=== PATIENT | male | born 1940 | race Hispanic/Latino ===

== ENCOUNTER 2017-10-19 19:27 | Emergency (ER) | payer MEDICARE ==
[~2017-10-19] VITALS: Ht 172.7 cm; Wt 90.7 kg
[2017-10-19] MEDS ORDERED: AMLODIPINE BESYL5 MG PO (20:08)
[2017-10-19] MEDS ORDERED: LOSARTAN POTASS25 MG PO (20:08)
[2017-10-19] MEDS ORDERED: TYLENOL WITH C1 EACH PO (20:08)
[2017-10-19] MEDS ORDERED: HYDROMORPHONE 1MG/1ML INJ IV STA (20:53)
[2017-10-19] MEDS ORDERED: ONDANSETRON HCL INJ 2 MG/ML VIAL IV STA (20:53)
[2017-10-19 21:12] LABS: BASOPHILS % 0.5 % (0.0-1.0); EOSINOPHILS # (AUTO) 0.2 (0.0-0.4); HEMATOCRIT 41.7 % (38.2-49.6); HEMOGLOBIN 15.1 g/dL (14.0-18.0); LYMPHOCYTES % 32.3 % (18.0-39.1); MEAN CORPUSCULAR HEMOGLOBIN 32.4 pg (28-32); MEAN CORPUSCULAR HGB CONC 36.2 g/dL (31-35); MEAN CORPUSCULAR VOLUME 89.5 fL (81-99); MONOCYTES # (AUTO) 0.6 (0.2-0.8); MONOCYTES % 9.3 % (4.4-11.3); NEUTROPHILS # (AUTO) 3.2 (2.1-6.9); NEUTROPHILS % 53.6 % (38.7-80.0); PLATELET COUNT 121 x10e3/uL (140-360); RED BLOOD COUNT 4.66 x10e6/uL (4.3-5.7); RED CELL DISTRIBUTION WIDTH 13.5 % (11.7-14.4)
[2017-10-19 21:20] LABS: BILIRUBIN,URINE NEGATIVE (NEGATIVE); CLARITY,URINE CLEAR (CLEAR); COLOR,URINE YELLOW (YELLOW); KETONES,URINE NEGATIVE (NEGATIVE); LEUKOCYTE ESTERASE ,URINE NEGATIVE (NEGATIVE); NITRITE,URINE NEGATIVE (NEGATIVE); PROTEIN,URINE DIPSTICK NEGATIVE (NEGATIVE); URINE UROBILINOGEN 0.2 mg/dL (0.2 - 1)
[2017-10-19 21:26] LABS: ALANINE AMINOTRANSFERASE 25 IU/L (0-55); ALBUMIN/GLOBULIN RATIO 1.7 (0.8-2.0); ALKALINE PHOSPHATASE 101 IU/L (40-150); ANION GAP 11.8 mmol/L (8-16); BLOOD UREA NITROGEN 23 mg/dL (7-26); BUN/CREATININE RATIO 24 (6-25); CALCIUM 9.1 mg/dL (8.4-10.2); CARBON DIOXIDE 25 mmol/L (22-29); CHLORIDE 104 mmol/L (98-107); CREATININE, SERUM 0.97 mg/dL (0.72-1.25); EPITHELIAL CELLS,URINE RARE /LPF; EST GLOMERULAR FILTRATION RATE > 60 ML/MIN (60-); GLUCOSE 159 mg/dL (74-118); POTASSIUM 3.8 mmol/L (3.5-5.1); RBC,URINE 0-5 /HPF (0-5); SODIUM 137 mmol/L (136-145); WBC,URINE (MAN) 0-5 /HPF (0-5)
[2017-10-19 21:27] LABS: CALCIUM OXALATE CRYSTALS,UR FEW (FEW)
--- NOTE | 2017-10-19 22:45 | Diagnostic Imaging Report ---
EXAM: CT Abdomen and Pelvis WITHOUT contrast INDICATION: Renal stone. COMPARISON: None. TECHNIQUE: Abdomen and pelvis were scanned utilizing a multidetector helical scanner from the lung base to the pubic symphysis without administration of IV contrast. Absence of intravenous contrast decreases sensitivity for detection of focal lesions and vascular pathology. Coronal and sagittal reformations were obtained. Stone protocol is performed. IV CONTRAST: None. ORAL CONTRAST: Water RADIATION DOSE: Total DLP: 660.37 mGy*cm Estimated effective dose: (DLP x 0.015 x size factor) mSv COMPLICATIONS: None FINDINGS: LINES and TUBES: None. LOWER THORAX: Unremarkable HEPATOBILIARY: The liver is diffuse hypodense compared to the spleen, consistent with diffuse hepatic diffuse hepatic steatosis. There are multiple scattered too small to characterize hypodensities in the liver, likely benign. No biliary ductal dilation. GALLBLADDER: No radio-opaque stones or sludge. No wall thickening. SPLEEN: No splenomegaly. PANCREAS: No focal masses or ductal dilatation. ADRENALS: No adrenal nodules KIDNEYS/URETERS: No hydronephrosis. No cystic or solid mass lesions. No stones. GI TRACT: No abnormal distention, wall thickening, or evidence of bowel obstruction. There are diverticula within the colon without evidence of diverticulitis. Appendix is normal. PELVIC ORGANS/BLADDER: Unremarkable. LYMPH NODES: No lymphadenopathy. VESSELS: There is mild atherosclerotic disease in the aorta and major arterial branches. PERITONEUM / RETROPERITONEUM: No free air or fluid. BONES: There are degenerative changes in the lumbar spine and bilateral SI joints. SOFT TISSUES: Small fat-containing left inguinal direct hernia. IMPRESSION: 1. No evidence of nephrolithiasis or hydronephrosis. 2. Multiple hepatic hypodensities compatible with numerous cysts. 3. Hepatic steatosis. Signed by: Dr. Barron Cheatham M.D. on 10/19/2017 10:04 PM
== END 2017-10-20 00:36 | disposition home or self-care (01) ==
LOC: ER 19:27
DX: M54.5 Low back pain (principal); S39.012A Strain of muscle, fascia and tendon of lower back, initial encounter; M46.1 Sacroiliitis, not elsewhere classified; I10 Essential (primary) hypertension; Z87.442 Personal history of urinary calculi
CPT/HCPCS: 36415; 74176; 80053; 81001; 85025; 99284; J1170; J2405

== ENCOUNTER 2018-06-22 11:52 | Emergency (ER) | payer MEDICARE ==
[~2018-06-22] VITALS: Ht 172.7 cm; Wt 90.7 kg
[~2018-06-22 11:52] MED LIST: AMLODIPINE BESYL5 MG PO; LOSARTAN POTASS25 MG PO; TYLENOL WITH C1 EACH PO
--- OUTSIDE RECORDS SUMMARY | 2018-06-22 11:54 | XMS REPORT ---
Author Author [facility] Address Unknown Phone Unavailable Care Team Providers Care Mercerizer Name Role Phone Clemente SCHMIDT Unavailable Unavailable Problems This patient has no known problems. Allergies, Adverse Reactions, Alerts This patient has no known allergies or adverse reactions. Medications This patient has no known medications. Results Test Description Test Time Test Comments Text Results Atomic Results Result Comments CT ABDOMEN/PELVIS WO 2017-10-19 21:59:00 [place] [address] Patient Name: AMADA STEIN MR #: [id number] : 1940 Age/Sex: 77/M Req #: [id number] [facility] Physician: Ordered by: JENY SCHMIDT MD Report #: [id number] Location: ER Room/Bed: Procedure: [id number] CT/CT ABDOMEN/PELVIS WO Exam Date: 10/19/17 Exam Time: 2113 REPORT STATUS: Signed EXAM: CT Abdomen and Pelvis WITHOUT contrast INDICATION: Renal stone. COMPARISON: None. TECHNIQUE: Abdomen and pelvis were scanned utilizing a multidetector helical scanner from the lung base to the pubic symphysis without administration of IV contrast. Absence of intravenous contrast decreases sensitivity for detection of focal lesions and vascular pathology. Coronal and sagittal reformations were obtained. Stone protocol is performed. IV CONTRAST: None. ORAL CONTRAST: Water RADIATION DOSE: Total DLP: 660.37 mGy*cm Estimated effective dose: (DLP x 0.015 x size factor) mSv COMPLICATIONS: None FINDINGS: LINES and TUBES: None. LOWER THORAX: Unremarkable HEPATOBILIARY: The liver is diffuse hypodense compared to the spleen, co nsistent with diffuse hepatic diffuse hepatic steatosis. There are multiple scattered too small to characterize hypodensities in the liver, likely benign. No biliary ductal dilation. GALLBLADDER: No radio-opaque stones or sludge. No wall thickening. SPLEEN: No splenomegaly. PANCREAS: No focal masses or ductal dilatation. ADRENALS: No adrenal nodules KIDNEYS/URETERS: No hydronephrosis. No cystic or solid mass lesions. No stones. GI TRACT: No abnormal distention, wall thickening, or evidence of bowel obstruction. There are diverticula within the colon without evidence of diverticulitis. Appendix is normal. PELVIC ORGANS/BLADDER: Unremarkable. LYMPH NODES: No lymphadenopathy. VESSELS: There is mild atherosclerotic disease in the aorta and major arterial branches. PERITONEUM / RETROPERITONEUM: No free air or fluid. BONES: There are degenerative changes in the lumbar spine and bilateral SI joints. SOFT TISSUES: Small fat-containing left inguinal direct hernia. IMPRESSION: 1. No evidence of nephrolithiasis or hydronephrosis. 2. Multiple hepatic hypodensities compatible with numerous cysts. 3. Hepatic steatosis. Signed by: Dr. Barron Cheatham M.D. on 10/19/2017 10:04 PM Dictated By: BARRON CROSS MD 03 Transcribed By: SHAWN on 10/19/172203 COPY TO: JENY SCHMIDT MD
--- OUTSIDE RECORDS SUMMARY | 2018-06-22 11:54 | XMS REPORT | Summary of Care ---
Author Organization Unknown Address Unknown Phone Unavailable Encounter HQ Encntr_bill(ZULEMA) [id number] Date(s): 09/04/14 - 09/04/14 [facility] Outpatient Imaging - [address], [address] [place], [place] [address] [phone] Discharge Disposition: Home Physician Attending: Ivette Luther MD Vital Signs No data available for this section Problem List Condition Effective Dates Status Health Status Informant Hypertension(Confirm Resolved ed) Allergies, Adverse Reactions, Alerts Substance Reaction Severity Status NKDA Active Medications No data available for this section Results No data available for this section Immunizations No data available for this section Procedures Procedure Date Related Diagnosis Body Site Hernia repair Social History Social History Type Response Smoking Status Never smoker; Exposure to Tobacco Smoke None; Cigarette Smoking Last 365 Days No; Reg Smoking Cessation Counseling No Assessment and Plan No data available for this section
--- OUTSIDE RECORDS SUMMARY | 2018-06-22 11:54 | XMS REPORT | Summary of Care ---
Author Organization Unknown Address Unknown Phone Unavailable Encounter HQ Yolette(ZULEMA) [id number] Date(s): 08/21/14 - 08/21/14 [facility] [address] [place] [address]- Discharge Diagnosis: Hip arthritis Discharge Diagnosis: Muscle spasm Discharge Diagnosis: Cyst of kidney, acquired Discharge Disposition: Home Physician Attending: Leana Mcgrath DO Vital Signs 1 2 3 Most recent to oldest [Reference Range]: 172.72 cm (08/21/14 8:17 AM) Height 97.5 DegF (08/21/14 11:11 AM) 97.6 DegF (08/21/14 8:17 AM) Temperature Oral [96.4-99.1 DegF] 155/89 mmHg *HI* (08/21/14 11:11 AM) 135/83 mmHg (08/21/14 8:39 AM) 175/91 mmHg *HI* (08/21/14 8:17 AM) Blood Pressure [90-140/60-90 mmHg] 18 BRMIN (08/21/14 11:11 AM) 20 BRMIN (08/21/14 8:39 AM) 18 BRMIN (08/21/14 8:17 AM) Respiratory Rate [14-20 BRMIN] 59 bpm *LOW* (08/21/14 11:11 AM) 68 bpm (08/21/14 8:39 AM) 72 bpm (08/21/14 8:17 AM) Peripheral Pulse Rate [60-100 bpm] 97.727 kg (08/21/14 8:17 AM) Weight 32.76 m2 (08/21/14 8:17 AM) Body Mass Index Problem List Condition Effective Dates Status Health Status Informant Hypertension(Confirm Resolved ed) Allergies, Adverse Reactions, Alerts Substance Reaction Severity Status NKDA Active Medications Flexeril 10 mg, Route: PO, ONCE, Dosing Weight 97.727, kg, Priority: STAT, Start date: 9:32:00, Stop date: 08/21/14 9:32:00 Start Date: 08/21/14 Stop Date: 08/21/14 Status: Completed Flexeril 10 mg oral tablet 10 mg, PO, TID, PRN Muscle Spasm, X 10 day, # 30 tab, 0 Refill(s), [id number] Start Date: 08/21/14 Stop Date: 08/31/14 Status: Ordered ketOROLAC 60 mg, Route: IM, Drug form: INJ, ONCE, Dosing Weight 97.727, kg, Priority: STAT , Start date: 08/21/14 9:32:00, Stop date: 08/21/14 9:32:00 Start Date: 08/21/14 Stop Date: 08/21/14 Status: Completed Medrol 4 mg oral tablet =1 pkt, PO, ONCE, as directed on package labeling, # 21 tab, 0 Refill(s), Pharma cy: [id number] Special Instructions: as directed on package labeling Start Date: 08/21/14 Status: Ordered Naprosyn 375 mg oral tablet 375 mg=1 tab, PO, BID, PRN Pain, # 20 tab, 0 Refill(s), Pharmacy: [id number] Start Date: 08/21/14 Status: Ordered predniSONE 60 mg, Route: PO, Drug form: TAB, ONCE, Dosing Weight 97.727, kg, Priority: STAT , Start date: 08/21/14 9:32:00, Stop date: 08/21/14 9:32:00 Start Date: 08/21/14 Stop Date: 08/21/14 Status: Completed Results No data available for this section [...]
--- OUTSIDE RECORDS SUMMARY | 2018-06-22 11:54 | XMS REPORT | Summary of Care ---
Author Author [facility] Organization [facility] Address Unknown Phone Unavailable Encounter ASHA De La Vega(ZULEMA) [id number] Date(s): 10/17/15 - 10/17/15 [facility] [address] [place] [address]- [phone] Discharge Diagnosis: Pain in left shoulder Discharge Disposition: Home Attending Physician: Reuben Tapia MD Vital Signs 1 2 3 Most recent to oldest [Reference Range]: 172.72 cm (10/17/15 3:57 PM) Height 98 DegF (10/17/15 10:12 PM) 98 DegF (10/17/15 7:01 PM) 98 DegF (10/17/15 3:57 PM) Temperature Oral [96.4-99.1 DegF] 156/85 mmHg *HI* (10/17/15 10:12 PM) 157/88 mmHg *HI* (10/17/15 9:05 PM) 173/80 mmHg *HI* (10/17/15 8:05 PM) Blood Pressure [90-140/60-90 mmHg] 17 BRMIN (10/17/15 10:12 PM) 20 BRMIN (10/17/15 9:05 PM) 19 BRMIN (10/17/15 8:05 PM) Respiratory Rate [14-20 BRMIN] 54 bpm *LOW* (10/17/15 7:01 PM) 55 bpm *LOW* (10/17/15 5:51 PM) 60 bpm (10/17/15 3:57 PM) Peripheral Pulse Rate [60-100 bpm] 95.455 kg (10/17/15 3:57 PM) Weight 32 m2 (10/17/15 3:57 PM) Body Mass Index Problem List Condition Effective Dates Status Health Status Informant Hypertension(Confirm Resolved ed) Allergies, Adverse Reactions, Alerts Substance Reaction Severity Status NKDA Active Medications Columbia 10/325 oral tablet 1 tab, Route: PO, Drug Form: TAB, Dosing Weight 95.455, kg, ONCE, STAT, Start da te: 10/17/15 20:27:00 CDT, Stop date: 10/17/15 20:27:00 CDT Notes: Do not exceed 4gm/day of acetaminophen. (Same as: Columbia 325/10) Start Date: 10/17/15 Stop Date: 10/17/15 Status: Completed Saline Flush 0.9% 10 mL, Route: IVP, Drug Form: INJ, Dosing Weight 95.455, kg, PRN, PRN Line Flush , Start date: 10/17/15 16:01:00 CDT, Duration: 30 day, Stop date: 11/16/15 16:00 :00 CDT Notes: (Same as: BD Posiflush) Start Date: 10/17/15 Stop Date: 10/17/15 Status: Discontinued Tylenol with Codeine #3 oral tablet 1 tab, PO, Q6H, PRN Pain, X 5 day, # 19 tab, 0 Refill(s) Start Date: 10/17/15 Stop Date: 10/22/15 Status: Ordered Results ELECTROLYTES Most recent to 1 oldest [Reference Range]: Sodium Lvl [135-145 141 mEq/L mEq/L] (10/17/15 4:52 PM) Potassium Lvl 4.4 mEq/L [3.5-5.1 mEq/L] (10/17/15 4:52 PM) Chloride Lvl [95-109 104 mEq/L mEq/L] (10/17/15 4:52 PM) CO2 [24-32 mEq/L] 29 mEq/L (10/17/15 4:52 PM) AGAP [10.0-20.0 12.4 mEq/L mEq/L] (10/17/15 4:52 PM) CHEM PANEL Most recent to 1 oldest [Reference Range]: Creatinine Lvl 1.01 mg/dL [0.50-1.40 mg/dL] (10/17/15 4:52 PM) eGFR 73 mL/min/1.73m2 1 *NA* (10/17/15 4:52 PM) BUN [7-22 mg/dL] 23 mg/dL *HI* (10/17/15 4:52 PM) B/C Ratio [6-25] 23 (10/17/15 4:52 PM) Glucose Lvl [70-99 98 mg/dL mg/dL] (10/17/15 4:52 PM) Total Protein 6.8 g/dL [6.4-8.4 g/dL] (10/17/15 4:52 PM) Albumin Lvl [3.5-5.0 3.8 g/dL g/dL] (10/17/15 4:52 PM) Globulin [2.0-4.0 3.0 g/dL g/dL] (10/17/15 4:52 PM) A/G Ratio [0.7-1.6] 1.3 (10/17/15 4:52 PM) Calcium Lvl 8.6 mg/dL [8.5-10.5 mg/dL] (10/17/15 4:52 PM) ALT [0-65 unit/L] 32 unit/L (10/17/15 4:52 PM) AST [0-37 unit/L] 18 unit/L (10/17/15 4:52 PM) Alk Phos [39-136 69 unit/L unit/L] (10/17/15 4:52 PM) Bili Total [0.2-1.3 0.7 mg/dL mg/dL] (10/17/15 4:52 PM) 1Result Comment: The eGFR is calculated using the CKD-EPI formula. In most young, healthy individuals the eGFR will be >90 mL/min/1.73m2. The eGFR declines with age. An eGFR of 60-89 may be normal in some populations, particularly the elderly, for whom the CKD-EPI formula has not been extensively validated. Use of the eGFR is not recommended in the following populations: Individuals with unstable creatinine concentrations, including patients and those with serious co-morbid conditions. Patients with extremes in muscle mass or diet. The data above are obtained from the National Kidney Disease Education Program ( NKDEP) which additionally recommends that when the eGFR is used in patients with extremes of body mass index for purposes of drug dosing, the eGFR should be mul tiplied by the estimated BMI. CARDIAC ENZYMES Most recent to 1 oldest [Reference Range]: Total CK [12-191 171 unit/L unit/L] (10/17/15 4:52 PM) CK MB [0.5-3.6 1.6 ng/mL ng/mL] (10/17/15 4:52 PM) CK MB Index 0.9 [0.0-2.5] (10/17/15 4:52 PM) Troponin-I <0.02 ng/mL [0.00-0.40 ng/mL] (10/17/15 4:52 PM) HEMATOLOGY Most recent to 1 oldest [Reference Range]: WBC [3.7-10.4 K/CMM] 6.9 K/CMM (10/17/15 4:52 PM) RBC [4.70-6.10 4.99 M/CMM M/CMM] (10/17/15 4:52 PM) Hgb [14.0-18.0 g/dL] 15.7 g/dL (10/17/15 4:52 PM) Hct [42.0-54.0 %] 45.5 % (10/17/15 4:52 PM) MCV [80.0-94.0 fL] 91.2 fL (10/17/15 4:52 PM) MCH [27.0-31.0 pg] 31.5 pg *HI* (10/17/15 4:52 PM) MCHC [32.0-36.0 34.5 g/dL g/dL] (10/17/15 4:52 PM) RDW [11.5-14.5 %] 14.5 % (10/17/15 4:52 PM) Platelet [133-450 137 K/CMM K/CMM] (10/17/15 4:52 PM) MPV [7.4-10.4 fL] 8.9 fL (10/17/15 4:52 PM) Segs [45.0-75.0 %] 60.7 % (10/17/15 4:52 PM) Lymphocytes 26.6 % [20.0-40.0 %] (10/17/15 4:52 PM) Monocytes [2.0-12.0 9.8 % %] (10/17/15 4:52 PM) Eosinophils [0.0-4.0 2.4 % %] (10/17/15 4:52 PM) Basophils [0.0-1.0 0.5 % %] (10/17/15 4:52 PM) Segs-Bands # 4.2 K/CMM [1.5-8.1 K/CMM] (10/17/15 4:52 PM) Lymphocytes # 1.8 K/CMM [1.0-5.5 K/CMM] (10/17/15 4:52 PM) Monocytes # [0.0-0.8 0.7 K/CMM K/CMM] (10/17/15 4:52 PM) Eosinophils # 0.2 K/CMM [0.0-0.5 K/CMM] (10/17/15 4:52 PM) Immunizations No data available for this section Procedures Procedure Date Related Diagnosis Body Site Hernia repair Social History Social History Type Response Smoking Status Never smoker; Exposure to Tobacco Smoke None; Cigarette Smoking Last 365 Days No; Reg Smoking Cessation Counseling No Assessment and Plan No data available for this section
--- OUTSIDE RECORDS SUMMARY | 2018-06-22 11:54 | XMS REPORT | Clinical Summary ---
Author Author [facility] Organization [facility] Address Unknown Phone Unavailable Care Team Providers Care Schedule Clerk Name Role Phone Asked, No Pcp PCP Unavailable Allergies No Known Allergies Medications End Date Status Medication Sig Dispensed Refills Start Date Active amLODIPine (NORVASC) 10 Take 10 mg by 0 mg tablet mouth daily. Active losartan (COZAAR) 50 MG Take 50 mg by 0 tablet mouth daily. Active acetaminophen-codeine Take 1 tablet 0 (TYLENOL WITH CODEINE #4) by mouth 2 300-60 mg per tablet (two) times a day. Active Problems Not on file Encounters Care Team Description Date Type Specialty Singh Bah II, MD 01/30/2018 Anesthesia Orthopedic Surgery Event Ramone Manuel MD BILATERAL L3-S1 FACET JOINT BLOCKS 01/30/2018 Surgery Orthopedic Surgery Ramone Manuel MD 01/30/2018 Hospital Orthopedic Surgery Encounter after 06/21/2017 Social History Date Tobacco Use Types Packs/Day Years Used Quit: 1985 Former Smoker Smokeless Tobacco: Never Used Alcohol Use Drinks/Week oz/Week Comments Yes 1 Cans of 0.6 social beer Sex Assigned at Date Recorded Not on file Industry Job Start Date Occupation Not on file Not on file Not on file Travel End Travel History Travel Start No recent travel history available. Last Filed Vital Signs Time Taken Vital Sign Reading 01/30/2018 7:10 PM CDT Blood Pressure 160/63 01/30/2018 7:10 PM CDT Pulse 60 01/30/2018 7:35 PM CDT Temperature 36.4 C (97.5 F) 01/30/2018 7:10 PM CDT Respiratory Rate 16 01/30/2018 7:10 PM CDT Oxygen Saturation 96% - Inhaled Oxygen - Concentration 01/30/2018 2:53 PM CDT Weight 89.5 kg (197 lb 6.4 oz) 01/30/2018 2:53 PM CDT Height 167.6 cm (5' 6") 01/30/2018 2:53 PM CDT Body Mass Index 31.86 Plan of Treatment Health Maintenance Due Date Last Done Comments SHINGLES VACCINES (#1) 02/17/1992 65+ PNEUMOCOCCAL VACCINE 2007 (1 of 2 - PCV13) PNEUMOCOCCAL 2007 POLYSACCHARIDE VACCINE AGE 65 AND OVER INFLUENZA VACCINE 10/31/2017 Procedures Comments Procedure Name Priority Date/Time Associated Diagnosis OR [place] < 1 HOUR Routine 01/30/2018 5:35 PM CDT INJECTION, STEROID, 01/30/2018 Low back pain SPINE, LUMBAR, EPIDURAL, 3:30 PM CDT SINGLE Special Needs LARGE C-ARM after 06/21/2017 Results * OR FL < 1 Hour (01/30/2018 5:35 PM CDT) Narrative Performed At EXAMINATION:[place] 1 HOUR HM [facility] C-arm fluoroscopy was requested in OR. OPC OR 19 RM: 15 PROCEDURE: FACET BLOCK L3 - S1 START TIME: 1705 END TIME: 1735 FLUORO TIME: 22 SEC DOSE: 12.46 mGy TECH(S): MC IMPRESSION: Separate operative report will be issued by the physician performing the procedure. [id number] Procedure Note Hm Interface, Radiology Results Incoming - 01/30/2018 9:56 PM CDT EXAMINATION: OR FL 1 HOUR C-arm fluoroscopy was requested in OR. OPC OR 19 RM: 15 PROCEDURE: FACET BLOCK L3 - S1 START TIME: 1705 END TIME: 1735 FLUORO TIME: 22 SEC DOSE: 12.46 mGy TECH(S): MC IMPRESSION: Separate operative report will be issued by the physician performing the procedure. [id number] Performing Organization Address City/State/Zipcode Phone Number [facility] [address] [place] [address] after 06/21/2017 Insurance Payer Benefit Subscriber ID Type Phone Address Plan / Group [facility] xxxxxxxx [facility] Advance Directives Patient has advance care planning documents on file. For more information, jazz gaytan contact: Cruz Hernandez [address] [place] [address]
--- OUTSIDE RECORDS SUMMARY | 2018-06-22 11:54 | XMS REPORT | Continuity of Care Document ---
Author Author Krista lieberman [facility] Interface Address Unknown Phone Unavailable Problems Problem Status Onset Date Classification Date Reported Comments Source DX: M54.5=LOW BACK PAIN, M25.559=PAIN IN Active 01/10/2018 [facility] Discharge Diagnosis: Pain in left shoulder 10/17/2015 10/20/2015 [facility] LEFT ARM PAIN Active 10/17/2015 [facility] Discharge Diagnosis: Hip arthritis 08/21/2014 08/24/2014 [facility] Discharge Diagnosis: Muscle spasm 08/21/2014 08/24/2014 [facility] Discharge Diagnosis: Cyst of kidney, acquired 08/21/2014 08/24/2014 [facility] SIDE PAIN Active 08/21/2014 [facility] 338.4 - CHRONIC PAIN SY Active 11/11/2013 [facility] Hypertension Resolved Problem 10/20/2015 [facility], OPID [facility], [facility] Medications Medication Details Route Status Patient Instructions Ordering Provider Order Date Source Acetaminophen 300 MG / Codeine Phosphate 30 MG Oral Tablet [Tylenol with Codeine #3] 1 tab, PO, Q6H, PRN Pain, X 5 day, # 19 tab, 0 Refill(s) Active 10/18/2015 [facility] Acetaminophen 325 MG / Hydrocodone Bitartrate 10 MG Oral Tablet [Ainsworth 10/325] 1 tab, Route: PO, Drug Form: TAB, Dosing Weight 95.455, kg, ONCE, STAT, Start date: 10/17/15 20:27:00 CDT, Stop date: 10/17/15 20:27:00 CDTNotes: Do not exceed 4gm/day of acetaminophen. (Same as: Ainsworth 325/10) Inactive 10/18/2015 [facility] Saline Flush 0.9% 10 mL, Route: IVP, Drug Form: INJ, Dosing Weight 95.455, kg, PRN, PRN Line Flush, Start date: 10/17/15 16:01:00 CDT, Duration: 30 day, Stop date: 08/16/16 16:00:00 CDTNotes: (Same as: BD Posiflush) Inactive 10/17/2015 [facility] Medrol 4 mg oral tablet =1 pkt, PO, ONCE, as directed on package labeling, # 21 tab, 0 Refill(s), Pharmacy: [id number] Instructions: as directed on package labeling Active 08/21/2014 [facility] Naproxen 375 MG Oral Tablet [Naprosyn] 375 mg=1 tab, PO, BID, PRN Pain, # 20 tab, 0 Refill(s), Pharmacy: [id number] Active 08/21/2014 [facility] Cyclobenzaprine hydrochloride 10 MG Oral Tablet [Flexeril] 10 mg, PO, TID, PRN Muscle Spasm, X 10 day, # 30 tab, 0 Refill(s), Pharmacy: [id number] Active 08/21/2014 [facility] Prednisone 60 mg, Route: PO, Drug form: TAB, ONCE, Dosing Weight 97.727, kg, Priority: STAT, Start date: 08/21/14 9:32:00, Stop date: 08/21/14 9:32:00 Inactive 08/21/2014 [facility] Flexeril 10 mg, Route: PO, ONCE, Dosing Weight 97.727, kg, Priority: STAT, Start date: 08/21/14 9:32:00, Stop date: 08/21/14 9:32:00 Inactive 08/21/2014 [facility] Ketorolac 60 mg, Route: IM, Drug form: INJ, ONCE, Dosing Weight 97.727, kg, Priority: STAT, Start date: 08/21/14 9:32:00, Stop date: 08/21/14 9:32:00 Inactive 08/21/2014 [facility] Allergies, Adverse Reactions, Alerts Substance Category Reaction Severity Reaction type Status Date Reported Comments Source Immunizations Immunization Date Given Site Status Last Updated Comments Source Results Order Name Results Value Reference Range Date Interpretation Comments Source Spine lumbar wo contrast MRI Spine lumbar wo contrast MRI Study: Spine lumbar wo contrast MRI 01/24/2018 7:25 AM CDT Patient Name: AMADA STEIN MR: [id number] : 1940; Age: 77 years y/o Male Ordering Physician: Ramone Manuel MD Clinical Indication: - G89.4 Chronic pain syndrome. M54.5 Low back pain. M25.559 Pain in both hips. Comparison: 10/17/2013. TECHNIQUE: Multiplanar T1, T2, and STIR weighted noncontrast MRI of the lumbar spine was performed on the 1.5 Haylie magnet. FINDINGS: ALIGNMENT AND GENERAL ASSESSMENT: 1. Five lumbar type vertebral bodies are assumed for purpose of this dictation with conus medullaris termination at L1-L2. 2. Mild rotoscoliosis convexity toward the left may be related to positioning or muscle spasm. 3. No evidence of acute fracture, dislocation, or suspicious focal osseous lesion. 4. Mild to moderate diffuse lumbar spondylosis and facet arthrosis greatest in the mid and lower lumbar spine manifest by multilevel narrowed, desiccated, and bulging intervertebral discs along with small marginal osteophytes and endplate degenerative change. 5. Small incompletely visualized fluid signal intensity right renal lesion suspicious for a cyst measuring 1.9 cm. 6. Normal paraspinal soft tissues. DISC SPACES: T12-L1: Mild diffuse disc bulge coupled with xdeq-ti-cpmhzlbi facet arthrosis causing mild anterior thecal sac compression without significant spinal canal narrowing. No significant neural foraminal narrowing. No important interval change. L1-L2: Mild diffuse disc bulge coupled with oryo-bw-bapvcgct facet arthrosis causing mild anterior thecal sac compression without significant spinal canal narrowing. Mild right neural foraminal narrowing related to a combination of the disc bulge and facet arthrosis. No significant left neural foraminal narrowing. No important interval change. L2-L3: Increasing mild to moderate diffuse disc bulge with broad-based right lateral asymmetry and fdwz-kz-xbpgofeu facet arthrosis. Mild spinal canal narrowing is again present. Increasing moderate right neural foraminal narrowing and stable mild to moderate left neural foraminal narrowing related to accommodation of the disc bulge, posteriorly projecting osteophytes, and facet arthrosis. A tiny posterior annular fissure is also present. L3-L4: Increasing mild to moderate diffuse disc bulge associated with moderate facet arthrosis causing increasing moderate spinal canal narrowing. Increasing moderate bilateral neural foraminal narrowing, right greater than left, related to a combination of the disc bulge, posteriorly projecting osteophytes, and facet arthrosis. L4-L5: Increasing mild to moderate diffuse disc bulge associated with moderate facet arthrosis causing increasing mild spinal canal narrowing and partial effacement of the left lateral recess. Increasing moderate left neural foraminal narrowing and mild to moderate right neural foraminal narrowing. A tiny synovial cyst projects posteriorly from the left facet joint. L5-S1: Mild diffuse disc bulge coupled with moderate facet arthrosis causing minimal anterior thecal sac compression without significant spinal canal narrowing. Mild right neural foraminal narrowing. No significant left neural foraminal narrowing. IMPRESSION: 1. Increasing mild to moderate diffuse lumbar spondylosis, facet arthrosis, and multilevel disc bulges. Multilevel zffk-rp-jovhvyqu spinal canal narrowing and mild to moderate neural foraminal narrowing are present and mildly increasing as above individually described. 2. Suspect incompletely visualized right renal cyst that may be confirmed with ultrasound. : [id number] 01/24/2018 - - Read by: Rich He MD Dictated Date/time: 01/24/18 16:27 Electronically Signed by: Rich He MD 01/24/18 16:37 FINAL REPORT [facility] Pelvis wo contrast MRI Pelvis wo contrast MRI EXAM: MRI pelvis HISTORY: Chronic pain syndrome, hip pain COMPARISON: Radiographs 08/21/2014 TECHNIQUE: Multiplanar images obtained of the pelvis utilizing relative T1 and T2 weighting without contrast FINDINGS: Moderate enlargement of the prostate. The bladder is somewhat underdistended with associated mild wall thickening. 8 mm lymph node left pelvic sidewall. No free fluid. Small fat-containing inguinal hernia on the left. Osteonecrosis of the femoral heads bilaterally. Spondylosis visualized lumbar spine. IMPRESSION: 1. Moderate enlargement of the prostate. Correlate with PSA. 2. Osteonecrosis of the femoral heads bilaterally. Dedicated MRI of the hips may be obtained if clinically indicated. 3. Small lymph node left pelvic sidewall is nonspecific. TVU-PC 01/24/2018 - - Read by: Gordon Yang MD Dictated Date/time: 01/24/18 17:52 Electronically Signed by: Gordon Yang MD 01/24/18 18:00 FINAL REPORT [facility] CARDIAC ENZYMES CK MB Index 0.9 0.0 - 2.5 10/17/2015 [facility] CARDIAC ENZYMES Total CK 171 unit/L 12 - 191 10/17/2015 [facility] CARDIAC ENZYMES Troponin-I null 0.00 - 0.40 10/17/2015 [facility] CARDIAC ENZYMES CK MB 1.6 ng/mL 0.5 - 3.6 10/17/2015 [facility] CHEM PANEL eGFR 73 mL/min/1.73m2 10/17/2015 Result Comment: The eGFR is calculated using the [...] from the National Kidney Disease Education Program (NKDEP) which additionally recommends that when the eGFR is used in patients with extremes of body mass index for purposes of drug dosing, the eGFR should be multiplied by the estimated BMI. [facility] CHEM PANEL Total Protein 6.8 g/dL 6.4 - 8.4 10/17/2015 [facility]M PANEL Calcium Lvl 8.6 mg/dL 8.5 - 10.5 10/17/2015 [facility] CHEM PANEL Albumin Lvl 3.8 g/dL 3.5 - 5.0 10/17/2015 [facility]M PANEL ALT 32 unit/L 0 - 65 10/17/2015 [facility] PANEL AST 18 unit/L 0 - 37 10/17/2015 [facility] PANEL Alk Phos 69 unit/L 39 - 136 10/17/2015 [facility]M PANEL CO2 29 meq/L 24 - 32 10/17/2015 [facility] PANEL B/C Ratio 23 6 - 25 10/17/2015 [facility]M PANEL AGAP 12.4 meq/L 10.0 - 20.0 10/17/2015 [facility] PANEL Globulin 3.0 g/dL 2.0 - 4.0 10/17/2015 [facility] PANEL Bili Total 0.7 mg/dL 0.2 - 1.3 10/17/2015 [facility] PAN[facility] A/G Ratio 1.3 0.7 - 1.6 10/17/2015 [facility]M PANEL Glucose Lvl 98 mg/dL 70 - 99 10/17/2015 [facility]M PANEL BUN 23 mg/dL 7 - 22 10/17/2015 [facility] PANEL Creatinine Lvl 1.01 mg/dL 0.50 - 1.40 10/17/2015 [facility] PANEL Sodium Lvl 141 meq/L 135 - 145 10/17/2015 [facility] CHEM PANEL Potassium Lvl 4.4 meq/L 3.5 - 5.1 10/17/2015 [facility] CHEM PANEL Chloride Lvl 104 meq/L 95 - 109 10/17/2015 [facility] HEMATOLOGY Eosinophils # 0.2 K/CMM 0.0 - 0.5 10/17/2015 [facility] HEMATOLOGY Monocytes # 0.7 K/CMM 0.0 - 0.8 10/17/2015 [facility] HEMATOLOGY Eosinophils 2.4 % 0.0 - 4.0 10/17/2015 [facility] HEMATOLOGY Segs-Bands # 4.2 K/CMM 1.5 - 8.1 10/17/2015 [facility] HEMATOLOGY Lymphocytes # 1.8 K/CMM 1.0 - 5.5 10/17/2015 [facility] HEMATOLOGY Basophils 0.5 % 0.0 - 1.0 10/17/2015 [facility] HEMATOLOGY Segs 60.7 % 45.0 - 75.0 10/17/2015 [facility] Lymphocytes 26.6 % 20.0 - 40.0 10/17/2015 [facility] Monocytes 9.8 % 2.0 - 12.0 10/17/2015 [facility] MCV 91.2 fL 80.0 - 94.0 10/17/2015 [facility] MCH 31.5 pg 27.0 - 31.0 10/17/2015 [facility] MCHC 34.5 g/dL 32.0 - 36.0 10/17/2015 [facility] RDW 14.5 % 11.5 - 14.5 10/17/2015 [facility] Platelet 137 K/CMM 133 - 450 10/17/2015 [facility] MPV 8.9 fL 7.4 - 10.4 10/17/2015 [facility] Hgb 15.7 g/dL 14.0 - 18.0 10/17/2015 [facility] HEMATOLOGY RBC 4.99 M/CMM 4.70 - 6.10 10/17/2015 [facility] HEMATOLOGY Hct 45.5 % 42.0 - 54.0 10/17/2015 [facility] WBC 6.9 K/CMM 3.7 - 10.4 10/17/2015 [facility] Shoulder series DX Shoulder series DX : 1940; Age: 75 years y/o Male MR: [id number] Study: Shoulder series DX 10/17/2015 6:57 PM CDT Clinical Indication: Pain and swelling; Comparison: None TECHNIQUE: 3 Views of the left shoulder FINDINGS: No fracture, malalignment, or other acute osseous abnormality is seen. Yptb-ej-jhomprxv degenerative changes are identified. IMPRESSION: No acute fracture or malalignment seen. SL: ERICA 10/17/2015 - - Read by: Cayla Campuzano MD Dictated Date/time: 10/17/15 19:47 Electronically Signed by: Cayla Campuzano MD 10/17/15 19:48 FINAL REPORT [facility] Ext Upper Venous Doppler Unilat US Ext Upper Venous Doppler Unilat US PROCEDURE: UNILATERAL UPPER EXTREMITY VENOUS ULTRASOUND CLINICAL INDICATION: Pain, Limb. COMPARISON: None. TECHNIQUE: Sonographic evaluation of the left upper extremity veins was performed using high resolution B-mode imaging, along with pulse and color Doppler imaging. Static images are submitted. FINDINGS: The left internal jugular, subclavian, axillary and brachial veins are patent. There is no echogenic debris to suggest deep venous thrombosis. The basilic and cephalic veins are patent. IMPRESSION: There is no sonographic evidence for thrombosis in the examined veins of the left upper extremity. SL: 10/17/2015 - - Read by: Roberto Damon MD Dictated Date/time: 10/17/15 17:31 Electronically Signed by: Roberto Damon MD 10/17/15 17:39 FINAL REPORT [facility] Chest 1view DX Chest 1view DX REASON FOR EXAM: Chest pain. COMPARISON: Portable chest x-ray 05/28/2012. Report of a chest CT performed 05/28/2012 was reviewed. FINDINGS: Single view of the chest. The cardiac silhouette is upper limits of normal. There are mild aortic calcifications and tortuosity of the descending thoracic aorta. There is no demonstrable infiltrate, pneumothorax, vascular congestion or pleural effusion. There are degenerative changes of the spine and left acromioclavicular joint. There has been no significant interval change from the comparison portable chest x-ray. IMPRESSION: There is no demonstrable acute cardiopulmonary disease. SL: 10/17/2015 - - Read by: Roberto Damon MD Dictated Date/time: 10/17/15 16:25 Electronically Signed by: Roberto Damon MD 10/17/15 16:31 FINAL REPORT [facility] Abdomen complete US Abdomen complete US EXAM: ABDOMINAL ULTRASOUND CLINICAL INDICATION: Cystic kidney disease COMPARISON: None DISCUSSION: Transverse and longitudinal images of the upper abdomen were obtained. Large amount of overlying bowel gas noted. The liver demonstrates mild increased echogenicity compatible with fatty infiltration. The liver is normal in size at 13 cm . A 1.5 x 2.0 centimeter hypoechoic lesion is present in the left lobe of the liver. This is slightly obscured by overlying bowel gas but is well-circumscribed with apparent posterior acoustic enhancement which is suggestive of the liver cyst. The spleen is normal in echogenicity and size measuring 11.7 centimeters in length. The gallbladder is normal in appearance without stones, wall thickening or pericholecystic fluid. The sonographic Kendrick's sign is negative. There is no intrahepatic biliary dilatation. The common bile duct is normal in caliber and measure 5 mm. Pancreas is poorly visualized. The right kidney measures 10.3 centimeters in length and the left kidney measures 11.9 centimeters. There is normal renal cortical echogenicity. No hydronephrosis is seen. A 1.4 cm cyst is present in the inferior pole the right kidney. A 0.9 cm cyst is present in the midpole the left kidney. The visualized portions of the great vessels are normal. No free fluid is seen. IMPRESSION: 1. Mild fatty infiltration of the liver. 2. Hypoechoic lesion in the left lobe of the liver measuring 2 cm.. This is somewhat obscured by overlying bowel gas but demonstrates posterior acoustic enhancement and likely hepatic cyst. Followup recommended. 3. Bilateral renal cysts. Dictated by staff: Dr. Sal. 09/04/2014 - - Read by: Lois Sal MD Dictated Date/time: 09/07/14 09:43 Electronically Signed by: Lois Sal MD 09/07/14 09:52 FINAL REPORT [facility] Hip bilat w pelvis and both lat hips DX Hip bilat w pelvis and both lat hips DX Examination: Bilateral hips, 5 views History: Limitation of movement Comparison: None. Findings: Multiple views of the pelvis and bilateral hips show no acute bony fracture or joint dislocation. IMPRESSION: No acute bony abnormality of the pelvis or bilateral hips. SL: 16 08/21/2014 - - Read by: Valerio Castellon MD Dictated Date/time: 05/22/15 10:12 Electronically Signed by: Valerio Castellon MD 08/21/14 10:13 FINAL REPORT [facility] Vital Signs Vital Sign Value Date Comments Source Respitory Rate 17 10/18/2015 [facility] Temperature Oral (F) 98 F 10/18/2015 [facility] Systolic (mm Hg) 156 10/18/2015 [facility] Diastolic (mm Hg) 85 10/18/2015 [facility] Systolic (mm Hg) 157 10/18/2015 [facility] Diastolic (mm Hg) 88 10/18/2015 [facility] Respitory Rate 20 10/18/2015 [facility] Respitory Rate 19 10/18/2015 [facility] Systolic (mm Hg) 173 10/18/2015 [facility] Diastolic (mm Hg) 80 10/18/2015 [facility] Heart Rate 54 10/18/2015 [facility] Temperature Oral (F) 98 F 10/18/2015 [facility] Heart Rate 55 10/17/2015 [facility] BMI Calculated 32 10/17/2015 [facility] Height 172.72 cm 10/17/2015 [facility] Temperature Oral (F) 98 F 10/17/2015 [facility] Heart Rate 60 10/17/2015 [facility] Weight 95.455 10/17/2015 [facility] Systolic (mm Hg) 155 08/21/2014 [facility] Diastolic (mm Hg) 89 08/21/2014 [facility] Respitory Rate 18 08/21/2014 [facility] Heart Rate 59 08/21/2014 [facility] Temperature Oral (F) 97.5 F 08/21/2014 [facility] Respitory Rate 20 08/21/2014 [facility] Heart Rate 68 08/21/2014 [facility] Systolic (mm Hg) 135 08/21/2014 [facility] Diastolic (mm Hg) 83 08/21/2014 [facility] Weight 97.727 08/21/2014 [facility] Height 172.72 cm 08/21/2014 [facility] BMI Calculated 32.76 08/21/2014 [facility] Systolic (mm Hg) 175 08/21/2014 [facility] Diastolic (mm Hg) 91 08/21/2014 [facility] Temperature Oral (F) 97.6 F 08/21/2014 [facility] Heart Rate 72 08/21/2014 [facility] Respitory Rate 18 08/21/2014 [facility] Encounters Location Location Details Encounter Type Encounter Number Reason For Visit Attending Provider ADM Date DC Date Status Source [facility] [id number] Erwin Johnson 10/17/2013 10/18/2013 [facility] [id number] Leana Mcgrath 08/21/2014 08/21/2014 [facility] [id number] Ivette Mendoazyo 09/04/2014 09/05/2014 [facility] [id number] Reuben Tapia 10/17/2015 10/18/2015 [facility] Procedures Procedure Code Date Perfomer Comments Source Hernia repair [id number] [facility] Hernia repair [id number] [facility]
--- OUTSIDE RECORDS SUMMARY | 2018-06-22 11:54 | XMS REPORT | Summary of Care ---
Author Organization Unknown Address Unknown Phone Unavailable Encounter [facility]cntr_bill([facility]) [id number] Date(s): 10/17/13 - 10/17/13 [facility] Outpatient Imaging - [address] [address]- [place] Discharge Disposition: Home Physician Attending: Erwin Johnson DO Reason for Visit 338.4 - CHRONIC PAIN SY Problem List Condition Effective Dates Status Health Status Informant Hypertension(Confirm Resolved ed) Allergies, Adverse Reactions, Alerts Substance Reaction Severity Status NKDA Active Medications No data available for this section Medications Administered During Your Visit No data available for this section Immunizations No data available for this section
== END 2018-06-22 12:38 | disposition left against medical advice (07) ==
LOC: ER 11:52
DX: M25.511 Pain in right shoulder (principal)

== ENCOUNTER 2021-01-01 14:41 | Emergency (ER) | payer MEDICARE ==
[~2021-01-01] VITALS: Ht 172.7 cm; Wt 90.7 kg
[2021-01-01 15:16] LABS: BASOPHILS % 0.3 % (0.0-1.0); EOSINOPHILS # (AUTO) 0.1 (0.0-0.4); EOSINOPHILS % 1.2 % (0.0-6.0); HEMATOCRIT 43.7 % (38.2-49.6); HEMOGLOBIN 15.2 g/dL (14.0-18.0); LYMPHOCYTES # (AUTO) 1.5 (1.0-3.2); LYMPHOCYTES % 18.6 % (18.0-39.1); MEAN CORPUSCULAR HEMOGLOBIN 31.1 pg (28-32); MEAN CORPUSCULAR HGB CONC 34.8 g/dL (31-35); MEAN CORPUSCULAR VOLUME 89.5 fL (81-99); MONOCYTES # (AUTO) 0.5 (0.2-0.8); MONOCYTES % 6.9 % (4.4-11.3); NEUTROPHILS # (AUTO) 5.6 (2.1-6.9); NEUTROPHILS % 72.2 % (38.7-80.0); PLATELET COUNT 140 x10e3/uL (140-360); RED BLOOD COUNT 4.88 x10e6/uL (4.3-5.7); RED CELL DISTRIBUTION WIDTH 13.8 % (11.7-14.4)
[2021-01-01 15:32] LABS: ALBUMIN 4.4 g/dL (3.5-5.0); ALBUMIN/GLOBULIN RATIO 1.8 (0.8-2.0); ANION GAP 15.3 mmol/L (8-16); CALCIUM 9.1 mg/dL (8.4-10.2); CREATININE, SERUM 0.87 mg/dL (0.72-1.25); POTASSIUM 4.3 mmol/L (3.5-5.1)
[2021-01-01] MEDS ORDERED: SODIUM CHLORIDE 0.9% 50ML 50 ML ONE (16:11)
[2021-01-01] MEDS ORDERED: IOPAMIDOL 370 MG/ML 200 ML INFUS..BTL INJ ONE (16:11)
[2021-01-01 16:31] LABS: CLARITY,URINE CLEAR (CLEAR); COLOR,URINE YELLOW (YELLOW)
[2021-01-01 16:32] LABS: KETONES,URINE NEGATIVE (NEGATIVE); LEUKOCYTE ESTERASE ,URINE NEGATIVE (NEGATIVE); NITRITE,URINE NEGATIVE (NEGATIVE); PROTEIN,URINE DIPSTICK NEGATIVE (NEGATIVE); URINE UROBILINOGEN 0.2 mg/dL (0.2 - 1)
[2021-01-01 16:41] LABS: BACTERIA,URINE MODERATE /HPF; EPITHELIAL CELLS,URINE FEW /LPF
[2021-01-01] MEDS ORDERED: CEPHALEXIN500 M1 PO (17:08)
[2021-01-01 17:09] VITALS: BP 175/85
== END 2021-01-01 17:11 | disposition home or self-care (01) ==
LOC: ER 14:50
DX: R19.09 Other intra-abdominal and pelvic swelling, mass and lump (principal); N39.0 Urinary tract infection, site not specified; I10 Essential (primary) hypertension; E78.00 Pure hypercholesterolemia, unspecified
CPT/HCPCS: 36415; 74177; 80053; 81001; 85025; 99284; Q9967

== ENCOUNTER 2021-09-21 11:00 | Emergency (ER) | payer MEDICARE ==
[~2021-09-21] VITALS: Ht 172.7 cm; Wt 90.7 kg
[~2021-09-21 11:00] MED LIST changes: +CEPHALEXIN500 M1 PO
[2021-09-21] MEDS ORDERED: ONDANSETRON HCL INJ 2MG/ML 2ML 2 MG/ML VIAL IV STA (11:14)
[2021-09-21] MEDS ORDERED: LIDOCAINE VISC 2% SOLN 15 ML UDC PO ONE (11:15)
[2021-09-21] MEDS ORDERED: PANTOPRAZOLE SOD 40 MG TABEC PO ONE (11:15)
[2021-09-21] MEDS ORDERED: MAGNESIUM/ALUMINUM/SIMETHICONE 30 ML UDC PO ONE (11:15)
[2021-09-21 11:25] LABS: BASOPHILS % 0.6 % (0.0-1.0); EOSINOPHILS # (AUTO) 0.2 (0.0-0.4); EOSINOPHILS % 2.9 % (0.0-6.0); HEMATOCRIT 40.7 % (38.2-49.6); HEMOGLOBIN 14.1 g/dL (14.0-18.0); LYMPHOCYTES # (AUTO) 1.6 (1.0-3.2); LYMPHOCYTES % 22.8 % (18.0-39.1); MEAN CORPUSCULAR HEMOGLOBIN 32.4 pg (28-32); MEAN CORPUSCULAR HGB CONC 34.6 g/dL (31-35); MEAN CORPUSCULAR VOLUME 93.6 fL (81-99); MONOCYTES # (AUTO) 0.6 (0.2-0.8); MONOCYTES % 9.1 % (4.4-11.3); NEUTROPHILS # (AUTO) 4.4 (2.1-6.9); NEUTROPHILS % 63.4 % (38.7-80.0); PLATELET COUNT 170 x10e3/uL (140-360); RED BLOOD COUNT 4.35 x10e6/uL (4.3-5.7); RED CELL DISTRIBUTION WIDTH 14.6 % (11.7-14.4)
[2021-09-21 11:51] LABS: ALBUMIN/GLOBULIN RATIO 1.6 (0.8-2.0); ANION GAP 11.9 mmol/L (8-16); CALCIUM 8.8 mg/dL (8.4-10.2); CREATININE, SERUM 0.99 mg/dL (0.72-1.25); POTASSIUM 3.9 mmol/L (3.5-5.1)
[2021-09-21 12:16] LABS: LIPASE 13 U/L (8-78)
[2021-09-21] MEDS ORDERED: PROTONIX20 MG PO (12:44)
[2021-09-21] MEDS ORDERED: ONDANSETRON ODT4 MG PO (12:44)
[2021-09-21 12:58] VITALS: BP 112/58
== END 2021-09-21 13:00 | disposition home or self-care (01) ==
LOC: ER 11:05
DX: R13.10 Dysphagia, unspecified (principal); R11.0 Nausea; I10 Essential (primary) hypertension; E78.5 Hyperlipidemia, unspecified; I25.10 Atherosclerotic heart disease of native coronary artery without angina pectoris; E78.00 Pure hypercholesterolemia, unspecified
CPT/HCPCS: 36415; 74022; 80053; 83690; 84484; 85025; 93005; 99284; J2405; S0164